=== PATIENT | female | born 1955 | race African-American/Black ===

== ENCOUNTER 2016-08-17 11:10 | Emergency (ER) | payer OTHER ==
[~2016-08-17] VITALS: Ht 157.5 cm; Wt 85.0 kg
[~2016-08-17 11:10] MED LIST: ACTOS15 MG PO; AMLODIPINE BESYL5 MG PO; APRESOLINE25 MG/TAB PO; ASPIRIN EC81 MG PO; CARDIZEM CD120 MG PO; CARDIZEM60 MG PO; ENALAPRIL2.5 MG PO; ENOXAPARIN80 MG/0.1 SC; FLEXERIL OR; GLIPIZIDE XL5 MG PO; GLIPIZIDE10 MG PO; LISINOPRIL10 MG PO; LOPRESSOR 550 MG/TAB PO; LOPRESSOR50 M1 PO; LORTAB5 OR; METFORMIN500 MG PO; NOVOLOG100 IU/1 M SC; ULTRAM50 M1 PO; WARFARIN SODIUM5 MG PO
[2016-08-17] MEDS ORDERED: VITAMIN D22000 UNIT PO (11:23)
[2016-08-17] MEDS ORDERED: SODIUM BICARBI650 MG PO (11:23)
[2016-08-17] MEDS ORDERED: METFORMIN500 MG PO (11:24)
[2016-08-17] MEDS ORDERED: CLONIDINE0.1 MG PO (11:24)
[2016-08-17 11:47] LABS: IMMATURE GRANULOCYTES 0.5 % (0.0-1.0); MEAN CELL VOLUME 79.7 fL CALC (80.0-100.0); MEAN CORPUSCULAR HGB 24.4 pG CALC (26.0-32.0); MEAN CORPUSCULAR HGB CONC 30.6 g/L CALC (32.0-36.0); NEUT# 13.05 thou/uL (2.00-7.15); RED BLOOD COUNT 2.46 mill/uL (4.20-5.60); RED CELL DISTRI WIDTH 17.2 % (11.5-15.5)
[2016-08-17 11:52] LABS: HEMATOCRIT 19.6 % (37.0-47.0)
[2016-08-17 12:02] LABS: INFLUENZA A NONE DETECTED (NONE DETECT); INFLUENZA B NONE DETECTED (NONE DETECT)
[2016-08-17 12:36] LABS: INTERNATIONAL NORMALIZED RATIO 3.1 RATIO (0.7-1.3); PROTHROMBIN TIME 36.6 SECONDS (9.0-12.5)
[2016-08-17 12:58] LABS: ALBUMIN 3.2 g/dL (3.2-5.0); BILIRUBIN, TOTAL 0.4 mg/dL (0.0-1.4); CALCIUM 9.1 mg/dL (8.4-10.2); CREATININE 2.7 mg/dL (0.5-1.0); TOTAL PROTEIN 8.4 g/dL (6.3-8.2)
[2016-08-17 13:03] LABS: POTASSIUM 5.7 mmol/l (3.5-5.1)
[2016-08-17 14:00] VITALS: BP 134/61
[2016-08-17 14:14] LABS: URINE BILIRUBIN - DIPSTICK NEGATIVE (NEGATIVE); URINE BLOOD DIPSTICK LARGE (NEGATIVE); URINE CLARITY CLOUDY; URINE COLOR YELLOW; URINE EPITHELIAL CELLS MODERATE EPI/hpf (0-FEW); URINE GLUCOSE - DIPSTICK NEGATIVE (NEGATIVE); URINE KETONE NEGATIVE (NEGATIVE); URINE LEUK ESTERASE SMALL (NEGATIVE); URINE NITRITE - DIPSTICK NEGATIVE (Negative); URINE PROTEIN - DIPSTICK 100 mg/dL (NEG-TRACE); URINE SPECIFIC GRAVITY 1.025; URINE UROBILINOGEN - DIPSTICK 0.2 E.U./dL (0.2)
[2016-08-17 14:15] LABS: URINE BACTERIA MANY hpf; URINE MUCUS MANY hpf (NONE-FEW)
[2016-08-17 14:16] VITALS: BP 124/58
[2016-08-17 14:35] VITALS: BP 121/58
[2016-08-17 14:46] VITALS: BP 118/57
[2016-08-17 15:03] VITALS: BP 116/56
[2016-08-17 15:12] VITALS: BP 116/56
== END 2016-08-17 15:14 | disposition short-term general hospital (02) | DRG 292 ==
LOC: ED 11:10
PROVIDERS: Emergency Medicine
PROC: 0T9B70Z Drainage of Bladder with Drainage Device, Via Natural or Artificial Opening (ICD-10-PCS; principal; 2016-08-17)
PROC: 30233N1 Transfusion of Nonautologous Red Blood Cells into Peripheral Vein, Percutaneous Approach (ICD-10-PCS; 2016-08-17)
PROC: 30233K1 Transfusion of Nonautologous Frozen Plasma into Peripheral Vein, Percutaneous Approach (ICD-10-PCS; 2016-08-17)
PROC: 30233K1 Transfusion of Nonautologous Frozen Plasma into Peripheral Vein, Percutaneous Approach (ICD-10-PCS; 2016-08-17)
DX: I13.0 Hypertensive heart and chronic kidney disease with heart failure and stage 1 through stage 4 chronic kidney disease, or unspecified chronic kidney disease (principal); K92.2 Gastrointestinal hemorrhage, unspecified; I69.954 Hemiplegia and hemiparesis following unspecified cerebrovascular disease affecting left non-dominant side; I50.9 Heart failure, unspecified; N18.9 Chronic kidney disease, unspecified; E11.9 Type 2 diabetes mellitus without complications; I48.91 Unspecified atrial fibrillation; E78.5 Hyperlipidemia, unspecified
CPT/HCPCS: P9016; S0164

== ENCOUNTER 2016-09-18 19:10 | Emergency (ER) | payer OTHER ==
[~2016-09-18] VITALS: Ht 157.5 cm; Wt 77.0 kg
[~2016-09-18 19:10] MED LIST changes: +CLONIDINE0.1 MG PO; +SODIUM BICARBI650 MG PO; +VITAMIN D22000 UNIT PO
[2016-09-18] MEDS ORDERED: LASIX 40 MG TAB40 MG PO (20:27)
[2016-09-18] MEDS ORDERED: CLINDAMYCIN300 M1 PO (20:27)
[2016-09-18] MEDS ORDERED: LEVEMIR100 UNIT/M SC (20:28)
[2016-09-18] MEDS ORDERED: NORVASC PO (20:29)
[2016-09-18] MEDS ORDERED: CLONIDINE HCL0.2 MG PO (20:30)
[2016-09-18] MEDS ORDERED: PANTOPRAZOLE SO40 M1 PO (20:31)
[2016-09-18] MEDS ORDERED: VITAMIN D50000 UNIT PO (20:32)
[2016-09-18 20:47] LABS: HEMOGLOBIN 8.9 g/dl (12.0-16.0); IMMATURE GRANULOCYTES 0.5 % (0.0-1.0); MEAN CELL VOLUME 83.1 fL CALC (80.0-100.0); MEAN CORPUSCULAR HGB 26.4 pG CALC (26.0-32.0); MEAN CORPUSCULAR HGB CONC 31.8 g/L CALC (32.0-36.0); NEUT# 11.32 thou/uL (2.00-7.15); RED BLOOD COUNT 3.37 mill/uL (4.20-5.60); RED CELL DISTRI WIDTH 15.7 % (11.5-15.5)
[2016-09-18 21:06] LABS: PROTHROMBIN TIME 10.3 SECONDS (9.0-12.5)
[2016-09-18 22:40] VITALS: BP 132/69
== END 2016-09-18 22:40 | disposition home or self-care (01) | DRG 607 ==
LOC: ED 19:10
PROVIDERS: Emergency Medicine
DX: R21 Rash and other nonspecific skin eruption (principal); I11.0 Hypertensive heart disease with heart failure; I50.9 Heart failure, unspecified; E11.621 Type 2 diabetes mellitus with foot ulcer; D64.9 Anemia, unspecified; D72.829 Elevated white blood cell count, unspecified; E78.5 Hyperlipidemia, unspecified; I48.91 Unspecified atrial fibrillation; L97.529 Non-pressure chronic ulcer of other part of left foot with unspecified severity; Z86.73 Personal history of transient ischemic attack (TIA), and cerebral infarction without residual deficits

== ENCOUNTER 2016-10-01 12:37 | Emergency (ER) | payer OTHER ==
[~2016-10-01] VITALS: Ht 157.5 cm; Wt 80.0 kg
[~2016-10-01 12:37] MED LIST changes: +CLINDAMYCIN300 M1 PO; +CLONIDINE HCL0.2 MG PO; +LASIX 40 MG TAB40 MG PO; +LEVEMIR100 UNIT/M SC; +NORVASC PO; +PANTOPRAZOLE SO40 M1 PO; +VITAMIN D50000 UNIT PO
[2016-10-01] MEDS ORDERED: CLONIDINE0.1 MG PO (12:56)
[2016-10-01] MEDS ORDERED: RISPERDAL0.5 MG PO (12:56)
[2016-10-01 13:24] LABS: HEMATOCRIT 25.4 % (37.0-47.0); HEMOGLOBIN 8.3 g/dl (12.0-16.0); IMMATURE GRANULOCYTES 0.3 % (0.0-1.0); MEAN CELL VOLUME 80.9 fL CALC (80.0-100.0); MEAN CORPUSCULAR HGB 26.4 pG CALC (26.0-32.0); MEAN CORPUSCULAR HGB CONC 32.7 g/L CALC (32.0-36.0); NEUT# 6.53 thou/uL (2.00-7.15); RED BLOOD COUNT 3.14 mill/uL (4.20-5.60); RED CELL DISTRI WIDTH 15.6 % (11.5-15.5)
[2016-10-01 13:34] LABS: INTERNATIONAL NORMALIZED RATIO 0.9 RATIO (0.7-1.3)
[2016-10-01 13:35] LABS: ALBUMIN 3.4 g/dL (3.2-5.0); ALKALINE PHOSPHATASE 136 u/l (38-126); ANION GAP 18 (6-22 (CALC)); BILIRUBIN, TOTAL 0.4 mg/dL (0.0-1.4); CALCIUM 8.8 mg/dL (8.4-10.2); CARBON DIOXIDE 20 mmol/l (22-30); CHLORIDE 95 mmol/l (95-108); CREATININE 3.8 mg/dL (0.5-1.0); GFR 12 ML/MIN (>=60 (CALC)); GFR FOR AFR.AMER. 15 ML/MIN (>=60 (CALC)); GLUCOSE 135 mg/dL (82-115); LIPASE 107 u/l (23-300); SGOT/AST 34 u/l (9-36); SGPT/ALT 25 u/l (11-66); SODIUM 127 mmol/l (137-146); TOTAL PROTEIN 8.3 g/dL (6.3-8.2)
[2016-10-01 13:39] LABS: BUN 90 mg/dL (8-23); BUN/CREATININE RATIO 24 (12-20 (CALC)); POTASSIUM 5.7 mmol/l (3.5-5.1)
[2016-10-01 14:58] LABS: MYOGLOBIN 245 ng/mL (0 - 62)
[2016-10-01 16:14] LABS: URINE BILIRUBIN - DIPSTICK NEGATIVE (NEGATIVE); URINE BLOOD DIPSTICK SMALL (NEGATIVE); URINE CLARITY CLOUDY; URINE COLOR YELLOW; URINE GLUCOSE - DIPSTICK NEGATIVE (NEGATIVE); URINE KETONE NEGATIVE (NEGATIVE); URINE LEUK ESTERASE NEGATIVE (Negative); URINE NITRITE - DIPSTICK NEGATIVE (Negative); URINE PH 5.5 (4.5-8.0); URINE PROTEIN - DIPSTICK 30 mg/dL (NEG-TRACE); URINE UROBILINOGEN - DIPSTICK 0.2 E.U./dL (0.2)
[2016-10-01 16:22] LABS: URINE AMORPH SEDIMENT MANY hpf (NONE-FEW); URINE SQUAMOUS EPITHELIAL CELL FEW EPI/hpf (0-FEW); URINE WBC 0-2 WBC/hpf (0-5)
[2016-10-01 18:18] VITALS: BP 140/65
== END 2016-10-01 18:18 | disposition short-term general hospital (02) | DRG 378 ==
LOC: ED 12:37 → ED-I 15:26 → ED 18:18
PROVIDERS: Emergency Medicine
DX: K92.2 Gastrointestinal hemorrhage, unspecified (principal); N17.9 Acute kidney failure, unspecified; E11.52 Type 2 diabetes mellitus with diabetic peripheral angiopathy with gangrene; I13.0 Hypertensive heart and chronic kidney disease with heart failure and stage 1 through stage 4 chronic kidney disease, or unspecified chronic kidney disease; I50.9 Heart failure, unspecified; D64.9 Anemia, unspecified; N18.9 Chronic kidney disease, unspecified; E87.5 Hyperkalemia; E78.5 Hyperlipidemia, unspecified; I48.91 Unspecified atrial fibrillation; Z86.73 Personal history of transient ischemic attack (TIA), and cerebral infarction without residual deficits

== ENCOUNTER 2017-01-31 12:18 | Emergency (ER) | payer OTHER ==
[~2017-01-31] VITALS: Ht 157.5 cm; Wt 100.0 kg
[~2017-01-31 12:18] MED LIST changes: +RISPERDAL0.5 MG PO
[2017-01-31 13:59] LABS: HEMATOCRIT 23.2 % (37.0-47.0); IMMATURE GRANULOCYTES 1.4 % (0.0-1.0); MEAN CELL VOLUME 88.2 fL CALC (80.0-100.0); MEAN CORPUSCULAR HGB 26.6 pG CALC (26.0-32.0); MEAN CORPUSCULAR HGB CONC 30.2 g/L CALC (32.0-36.0); PLATELET COUNT 599 thou/uL (130-400); RED BLOOD COUNT 2.63 mill/uL (4.20-5.60); RED CELL DISTRI WIDTH 18.6 % (11.5-15.5)
[2017-01-31 14:02] LABS: MANUAL DIFFERENTIAL YES
[2017-01-31 14:16] LABS: ALBUMIN 2.9 g/dL (3.2-5.0); BILIRUBIN, TOTAL 0.5 mg/dL (0.0-1.4); CALCIUM 8.4 mg/dL (8.4-10.2); CREATININE 3.2 mg/dL (0.5-1.0); POTASSIUM 3.7 mmol/l (3.5-5.1); TOTAL PROTEIN 7.4 g/dL (6.3-8.2)
[2017-01-31 15:40] VITALS: BP 121/58
== END 2017-01-31 15:40 | disposition short-term general hospital (02) | DRG 299 ==
LOC: ED 12:18
PROVIDERS: Emergency Medicine
DX: E11.52 Type 2 diabetes mellitus with diabetic peripheral angiopathy with gangrene (principal); N18.6 End stage renal disease; I13.2 Hypertensive heart and chronic kidney disease with heart failure and with stage 5 chronic kidney disease, or end stage renal disease; E11.22 Type 2 diabetes mellitus with diabetic chronic kidney disease; L97.429 Non-pressure chronic ulcer of left heel and midfoot with unspecified severity; L97.419 Non-pressure chronic ulcer of right heel and midfoot with unspecified severity; E11.621 Type 2 diabetes mellitus with foot ulcer; E78.5 Hyperlipidemia, unspecified; D63.1 Anemia in chronic kidney disease; I50.9 Heart failure, unspecified; Z99.2 Dependence on renal dialysis; Z86.73 Personal history of transient ischemic attack (TIA), and cerebral infarction without residual deficits

== ENCOUNTER 2017-04-12 17:03 | Emergency (ER) | payer OTHER ==
[~2017-04-12] VITALS: Ht 157.5 cm; Wt 59.0 kg
[2017-04-12 18:39] LABS: HEMATOCRIT 45.4 % (37.0-47.0); HEMOGLOBIN 13.4 g/dl (12.0-16.0); IMMATURE GRANULOCYTES 0.4 % (0.0-1.0); MEAN CELL VOLUME 91.5 fL CALC (80.0-100.0); MEAN CORPUSCULAR HGB CONC 29.5 g/L CALC (32.0-36.0); NEUT# 4.25 thou/uL (2.00-7.15); RED BLOOD COUNT 4.96 mill/uL (4.20-5.60); RED CELL DISTRI WIDTH 15.1 % (11.5-15.5)
[2017-04-12] MEDS ORDERED: ASPIRIN81 MG PO (18:49)
[2017-04-12] MEDS ORDERED: AMLODIPINE5 MG PO (18:50)
[2017-04-12] MEDS ORDERED: DILTIAZEM60 MG PO (18:52)
[2017-04-12] MEDS ORDERED: LEVEMIR FL100 UNIT/M SC (18:53)
[2017-04-12] MEDS ORDERED: COUMADIN5 MG PO (18:54)
[2017-04-12 19:04] LABS: ALBUMIN 3.3 g/dL (3.2-5.0); ALKALINE PHOSPHATASE 212 u/l (38-126); ANION GAP 16 (6-22 (CALC)); BILIRUBIN, TOTAL 0.3 mg/dL (0.0-1.4); BUN 35 mg/dL (8-23); BUN/CREATININE RATIO 12 (12-20 (CALC)); CALCIUM 8.9 mg/dL (8.4-10.2); CARBON DIOXIDE 18 mmol/l (22-30); CHLORIDE 107 mmol/l (95-108); GFR 16 ML/MIN (>=60 (CALC)); GFR FOR AFR.AMER. 19 ML/MIN (>=60 (CALC)); GLUCOSE 136 mg/dL (82-115); POTASSIUM 5.1 mmol/l (3.5-5.1); SGOT/AST 37 u/l (9-36); SGPT/ALT 30 u/l (11-66); SODIUM 135 mmol/l (137-146); TOTAL PROTEIN 7.6 g/dL (6.3-8.2)
[2017-04-12 19:13] LABS: MYOGLOBIN 149 ng/mL (0 - 62)
[2017-04-12 23:38] VITALS: BP 172/80
== END 2017-04-12 22:55 | DRG 313 ==
LOC: ED 17:03
PROVIDERS: Emergency Medicine
DX: R07.89 Other chest pain (principal); I50.9 Heart failure, unspecified; I10 Essential (primary) hypertension; I48.91 Unspecified atrial fibrillation; Z99.2 Dependence on renal dialysis; E11.9 Type 2 diabetes mellitus without complications

== ENCOUNTER 2017-04-14 18:18 | Emergency (ER) | payer OTHER ==
[~2017-04-14] VITALS: Ht 157.5 cm; Wt 65.0 kg
[~2017-04-14 18:18] MED LIST changes: +AMLODIPINE5 MG PO; +ASPIRIN81 MG PO; +COUMADIN5 MG PO; +DILTIAZEM60 MG PO; +LEVEMIR FL100 UNIT/M SC
[2017-04-14] MEDS ORDERED: WARFARIN4 MG PO (19:22)
[2017-04-14] MEDS ORDERED: WARFARIN5 MG PO (19:22)
[2017-04-14 19:23] LABS: HEMOGLOBIN 11.3 g/dl (12.0-16.0); IMMATURE GRANULOCYTES 0.5 % (0.0-1.0); MEAN CELL VOLUME 88.5 fL CALC (80.0-100.0); MEAN CORPUSCULAR HGB CONC 30.5 g/L CALC (32.0-36.0); NEUT# 1.98 thou/uL (2.00-7.15); RED BLOOD COUNT 4.18 mill/uL (4.20-5.60); RED CELL DISTRI WIDTH 15.2 % (11.5-15.5)
[2017-04-14] MEDS ORDERED: ASCORBIC ACD500 MG PO (19:28)
[2017-04-14] MEDS ORDERED: ATIVAN1 MG PO (19:28)
[2017-04-14] MEDS ORDERED: HUMALOG100 MG/ML (19:30)
[2017-04-14 19:44] LABS: ALBUMIN 2.9 g/dL (3.2-5.0); BILIRUBIN, TOTAL 0.2 mg/dL (0.0-1.4); CALCIUM 8.6 mg/dL (8.4-10.2); CREATININE 2.7 mg/dL (0.5-1.0); POTASSIUM 4.5 mmol/l (3.5-5.1); TOTAL PROTEIN 6.6 g/dL (6.3-8.2)
[2017-04-14 20:45] VITALS: BP 124/67
== END 2017-04-14 21:19 | DRG 639 ==
LOC: ED 18:18
PROVIDERS: Emergency Medicine
DX: E11.649 Type 2 diabetes mellitus with hypoglycemia without coma (principal); I48.91 Unspecified atrial fibrillation; Z79.4 Long term (current) use of insulin; I10 Essential (primary) hypertension; Z79.01 Long term (current) use of anticoagulants

== ENCOUNTER 2017-07-20 11:47 | Emergency (ER) | payer OTHER ==
[~2017-07-20] VITALS: Ht 157.5 cm; Wt 60.0 kg
[~2017-07-20 11:47] MED LIST changes: +ASCORBIC ACD500 MG PO; +ATIVAN1 MG PO; +HUMALOG100 MG/ML; +WARFARIN4 MG PO; +WARFARIN5 MG PO
[2017-07-20 13:05] LABS: IMMATURE GRANULOCYTES 1.3 % (0.0-1.0); MEAN CELL VOLUME 92.6 fL CALC (80.0-100.0); MEAN CORPUSCULAR HGB 27.8 pG CALC (26.0-32.0); RED CELL DISTRI WIDTH 13.7 % (11.5-15.5)
[2017-07-20 13:06] LABS: HEMATOCRIT 46.3 % (37.0-47.0); HEMOGLOBIN 13.9 g/dl (12.0-16.0)
[2017-07-20 14:41] LABS: ALBUMIN 3.2 g/dL (3.2-5.0); BILIRUBIN, TOTAL 0.4 mg/dL (0.0-1.4); MAGNESIUM 1.9 mg/dL (1.6-2.3); POTASSIUM 4.7 mmol/l (3.5-5.1); TOTAL PROTEIN 6.9 g/dL (6.3-8.2)
[2017-07-20 14:42] LABS: CREATININE 1.5 mg/dL (0.5-1.0)
[2017-07-20 15:21] VITALS: BP 173/75
== END 2017-07-20 16:01 | disposition home or self-care (01) | DRG 391 ==
LOC: ED 11:47
PROVIDERS: Family Medicine
DX: K52.9 Noninfective gastroenteritis and colitis, unspecified (principal); N18.6 End stage renal disease; E11.22 Type 2 diabetes mellitus with diabetic chronic kidney disease; E11.51 Type 2 diabetes mellitus with diabetic peripheral angiopathy without gangrene; F03.90 Unspecified dementia, unspecified severity, without behavioral disturbance, psychotic disturbance, mood disturbance, and anxiety; F41.9 Anxiety disorder, unspecified; F32.9 Major depressive disorder, single episode, unspecified; Z99.2 Dependence on renal dialysis; R11.10 Vomiting, unspecified; R10.9 Unspecified abdominal pain

== ENCOUNTER 2017-11-27 14:08 | Emergency (ER) | payer OTHER ==
[~2017-11-27] VITALS: Ht 157.5 cm; Wt 100.0 kg
[2017-11-27] MEDS ORDERED: CLONAZEPAM0.5 MG PO ×2 (14:36→14:39)
[2017-11-27] MEDS ORDERED: LEVEMIR FL100 UNIT/M SC (14:40)
[2017-11-27] MEDS ORDERED: OMEPRAZOLE10 MG PO (14:41)
[2017-11-27] MEDS ORDERED: ZINC SULFATE220 M1 PO (14:57)
[2017-11-27 16:12] LABS: IMMATURE GRANULOCYTES 0.5 % (0.0-1.0); MEAN CELL VOLUME 96.1 fL CALC (80.0-100.0); MEAN CORPUSCULAR HGB CONC 30.2 g/L CALC (32.0-36.0); NEUT# 5.14 thou/uL (2.00-7.15); RED BLOOD COUNT 3.55 mill/uL (4.20-5.60); RED CELL DISTRI WIDTH 15.9 % (11.5-15.5)
[2017-11-27] MEDS ORDERED: COLACE100 MG PO (16:30)
[2017-11-27 16:31] LABS: HEMATOCRIT 34.1 % (37.0-47.0); HEMOGLOBIN 10.3 g/dl (12.0-16.0)
[2017-11-27] MEDS ORDERED: PERCOCET 5/321 COMBO PO (16:33)
[2017-11-27 16:38] LABS: ALBUMIN 3.4 g/dL (3.2-5.0); BILIRUBIN, TOTAL 0.4 mg/dL (0.0-1.4); CREATININE 2.2 mg/dL (0.5-1.0); POTASSIUM 4.4 mmol/l (3.5-5.1); TOTAL PROTEIN 7.3 g/dL (6.3-8.2)
[2017-11-27 17:18] VITALS: BP 137/63
== END 2017-11-27 17:37 ==
LOC: ED 14:08
PROVIDERS: Emergency Medicine
DX: R42 Dizziness and giddiness (principal); R53.1 Weakness; E11.22 Type 2 diabetes mellitus with diabetic chronic kidney disease; N18.6 End stage renal disease; Z99.2 Dependence on renal dialysis; E11.51 Type 2 diabetes mellitus with diabetic peripheral angiopathy without gangrene; F41.9 Anxiety disorder, unspecified; F03.90 Unspecified dementia, unspecified severity, without behavioral disturbance, psychotic disturbance, mood disturbance, and anxiety; F32.9 Major depressive disorder, single episode, unspecified; Z99.3 Dependence on wheelchair; Z89.612 Acquired absence of left leg above knee

== ENCOUNTER 2018-04-14 07:02 | Day surgery (SDC) | payer OTHER ==
[~2018-04-14 07:02] MED LIST changes: +CLONAZEPAM0.5 MG PO; +COLACE100 MG PO; +OMEPRAZOLE10 MG PO; +PERCOCET 5/321 COMBO PO; +ZINC SULFATE220 M1 PO; +ZOFRAN ODT4 MG PO
[2018-04-14 08:04] LABS: IMMATURE GRANULOCYTES 0.3 % (0.0-5.0); MEAN CELL VOLUME 90.4 fL CALC (80.0-100.0); MEAN CORPUSCULAR HGB 27.5 pG CALC (26.0-32.0); MEAN CORPUSCULAR HGB CONC 30.5 g/L CALC (32.0-36.0); NEUT# 6.72 thou/uL (2.00-7.15); RED BLOOD COUNT 4.25 mill/uL (4.20-5.60); RED CELL DISTRI WIDTH 16.3 % (11.5-15.5)
[2018-04-14 08:15] LABS: HEMATOCRIT 38.4 % (37.0-47.0); HEMOGLOBIN 11.7 g/dl (12.0-16.0)
[2018-04-14 08:21] LABS: ACT PARTIAL THROMBO TIME 29.2 SECONDS (20.0-32.5); INTERNATIONAL NORMALIZED RATIO 0.9 RATIO (0.7-1.3); PROTHROMBIN TIME 9.9 SECONDS (9.0-12.5)
[2018-04-14 08:27] LABS: CREATININE 4.1 mg/dL (0.5-1.0); POTASSIUM 5.8 mmol/l (3.5-5.1)
[2018-04-14 10:59] VITALS: BP 165/73
== END 2018-04-14 10:35 ==
LOC: ORM 07:02
PROVIDERS: ATTEND Radiology Diagnostic Radiology
DX: T82.898A Other specified complication of vascular prosthetic devices, implants and grafts, initial encounter (principal); I12.0 Hypertensive chronic kidney disease with stage 5 chronic kidney disease or end stage renal disease; E11.22 Type 2 diabetes mellitus with diabetic chronic kidney disease; N18.6 End stage renal disease; Z99.2 Dependence on renal dialysis; I69.954 Hemiplegia and hemiparesis following unspecified cerebrovascular disease affecting left non-dominant side; I69.928 Other speech and language deficits following unspecified cerebrovascular disease; F03.90 Unspecified dementia, unspecified severity, without behavioral disturbance, psychotic disturbance, mood disturbance, and anxiety; I48.91 Unspecified atrial fibrillation; Y83.8 Other surgical procedures as the cause of abnormal reaction of the patient, or of later complication, without mention of misadventure at the time of the procedure; Z79.01 Long term (current) use of anticoagulants; Z86.718 Personal history of other venous thrombosis and embolism
CPT/HCPCS: C1769

== ENCOUNTER 2018-04-14 18:17 | Emergency (ER) | payer OTHER ==
[~2018-04-14] VITALS: Ht 154.9 cm; Wt 160.0 kg
[2018-04-14 23:15] VITALS: BP 162/72
== END 2018-04-14 23:37 ==
LOC: ED 18:17
DX: Z45.2 Encounter for adjustment and management of vascular access device (principal)

== ENCOUNTER 2018-11-17 20:08 | Emergency (ER) | payer OTHER ==
[~2018-11-17] VITALS: Ht 154.9 cm; Wt 81.8 kg
[2018-11-17] MEDS ORDERED: MIRALAX3350 NF PO (20:45)
[2018-11-17] MEDS ORDERED: PEPCID20 MG PO (20:46)
[2018-11-17] MEDS ORDERED: RENAL VITE PO (20:47)
[2018-11-17] MEDS ORDERED: PHOSLO667 M1 PO (20:53)
[2018-11-18 00:30] VITALS: BP 116/88
== END 2018-11-18 00:30 ==
LOC: ED 20:08
DX: M79.604 Pain in right leg (principal); S82.201D Unspecified fracture of shaft of right tibia, subsequent encounter for closed fracture with routine healing; F03.90 Unspecified dementia, unspecified severity, without behavioral disturbance, psychotic disturbance, mood disturbance, and anxiety; E11.51 Type 2 diabetes mellitus with diabetic peripheral angiopathy without gangrene; E11.22 Type 2 diabetes mellitus with diabetic chronic kidney disease; N18.6 End stage renal disease; X58.XXXD Exposure to other specified factors, subsequent encounter; Z89.612 Acquired absence of left leg above knee; Z79.4 Long term (current) use of insulin; M79.89 Other specified soft tissue disorders

== ENCOUNTER 2019-04-14 14:10 | Emergency (ER) | payer OTHER ==
[~2019-04-14] VITALS: Ht 154.9 cm; Wt 66.0 kg
[~2019-04-14 14:10] MED LIST changes: +MIRALAX3350 NF PO; +PEPCID20 MG PO; +PHOSLO667 M1 PO; +RENAL VITE PO
[2019-04-14 15:54] LABS: IMMATURE GRANULOCYTES 0.6 % (0.0-5.0); MEAN CELL VOLUME 94.3 fL CALC (80.0-100.0); MEAN CORPUSCULAR HGB 28.5 pG CALC (26.0-32.0); MEAN CORPUSCULAR HGB CONC 30.2 g/L CALC (32.0-36.0); NEUT# 16.72 thou/uL (2.00-7.15); RED BLOOD COUNT 4.42 mill/uL (4.20-5.60); RED CELL DISTRI WIDTH 14.8 % (11.5-15.5)
[2019-04-14 15:56] LABS: HEMATOCRIT 41.7 % (37.0-47.0); HEMOGLOBIN 12.6 g/dl (12.0-16.0)
[2019-04-14 16:13] LABS: TOTAL PROTEIN 8.4 g/dL (6.3-8.2)
[2019-04-14 16:21] LABS: BILIRUBIN, TOTAL 1.2 mg/dL (0.0-1.4); CREATININE 6.3 mg/dL (0.5-1.0); POTASSIUM 4.5 mmol/l (3.5-5.1)
[2019-04-14 16:56] LABS: URINE BILIRUBIN - DIPSTICK NEGATIVE (NEGATIVE); URINE BLOOD DIPSTICK MODERATE (NEGATIVE); URINE COLOR YELLOW; URINE GLUCOSE - DIPSTICK NEGATIVE (NEGATIVE); URINE KETONE TRACE mg/dL (NEGATIVE); URINE LEUK ESTERASE MODERATE (NEGATIVE); URINE NITRITE - DIPSTICK NEGATIVE (Negative); URINE PH 6.5 (4.5-8.0); URINE PROTEIN - DIPSTICK >=300 mg/dL (NEG-TRACE); URINE UROBILINOGEN - DIPSTICK 0.2 E.U./dL (0.2)
[2019-04-14 17:05] LABS: URINE BACTERIA MODERATE hpf; URINE RBC TNTC RBC/hpf (0-5); URINE SQUAMOUS EPITHELIAL CELL FEW EPI/hpf (0-FEW); URINE WBC TNTC WBC/hpf (0-5)
[2019-04-14 20:13] VITALS: BP 161/67
== END 2019-04-14 20:35 ==
LOC: ED 14:10
DX: J10.00 Influenza due to other identified influenza virus with unspecified type of pneumonia (principal); R11.2 Nausea with vomiting, unspecified; N18.6 End stage renal disease; J96.11 Chronic respiratory failure with hypoxia
CPT/HCPCS: G9019; J0131; J2060

== ENCOUNTER 2019-04-29 06:15 | Emergency (ER) | payer OTHER ==
[~2019-04-29] VITALS: Ht 154.9 cm; Wt 82.0 kg
[2019-04-29 07:16] LABS: IMMATURE GRANULOCYTES 0.6 % (0.0-5.0); MEAN CELL VOLUME 91.1 fL CALC (80.0-100.0); MEAN CORPUSCULAR HGB 27.6 pG CALC (26.0-32.0); MEAN CORPUSCULAR HGB CONC 30.3 g/L CALC (32.0-36.0); NEUT# 8.31 thou/uL (2.00-7.15); RED BLOOD COUNT 3.26 mill/uL (4.20-5.60); RED CELL DISTRI WIDTH 15.8 % (11.5-15.5)
[2019-04-29 07:17] LABS: HEMATOCRIT 29.7 % (37.0-47.0)
[2019-04-29 07:24] LABS: POTASSIUM 3.8 mmol/l (3.5-5.1); TOTAL PROTEIN 9.5 g/dL (6.3-8.2)
[2019-04-29 07:26] LABS: BILIRUBIN, TOTAL 0.4 mg/dL (0.0-1.4); CREATININE 6.2 mg/dL (0.5-1.0)
[2019-04-29 08:04] LABS: URINE BLOOD DIPSTICK SMALL (NEGATIVE); URINE COLOR YELLOW; URINE GLUCOSE - DIPSTICK NEGATIVE (NEGATIVE); URINE KETONE TRACE mg/dL (NEGATIVE); URINE LEUK ESTERASE SMALL (Negative); URINE NITRITE - DIPSTICK NEGATIVE (Negative); URINE PROTEIN - DIPSTICK >=300 mg/dL (NEG-TRACE); URINE UROBILINOGEN - DIPSTICK 0.2 E.U./dL (0.2)
[2019-04-29 08:06] LABS: URINE BACTERIA FEW hpf; URINE BILIRUBIN - DIPSTICK SMALL (NEGATIVE); URINE CLARITY HAZY; URINE EPITHELIAL CELLS MODERATE EPI/hpf (0-FEW); URINE MUCUS MODERATE hpf (NONE-FEW); URINE RBC 0-2 RBC/hpf (0-5)
[2019-04-29] MEDS ORDERED: CEPHALEXIN500 MG PO (08:11)
[2019-04-29 09:15] VITALS: BP 130/59
== END 2019-04-29 09:47 ==
LOC: ED 06:15
PROVIDERS: Emergency Medicine
DX: N39.0 Urinary tract infection, site not specified (principal); D63.1 Anemia in chronic kidney disease; E11.22 Type 2 diabetes mellitus with diabetic chronic kidney disease; N18.6 End stage renal disease; F03.90 Unspecified dementia, unspecified severity, without behavioral disturbance, psychotic disturbance, mood disturbance, and anxiety; Z99.2 Dependence on renal dialysis; Z89.612 Acquired absence of left leg above knee; Z79.4 Long term (current) use of insulin

== ENCOUNTER 2019-07-05 | Emergency (ER) | payer OTHER ==
[~2019-07-05] MED LIST changes: +CEPHALEXIN500 MG PO
[2019-07-05 01:07] LABS: IMMATURE GRANULOCYTES 0.1 % (0.0-5.0); MEAN CORPUSCULAR HGB 28.7 pG CALC (26.0-32.0); MEAN CORPUSCULAR HGB CONC 30.3 g/L CALC (32.0-36.0); NEUT# 3.5 thou/uL (2.00-7.15); RED BLOOD COUNT 4.21 mill/uL (4.20-5.60); RED CELL DISTRI WIDTH 14.6 % (11.5-15.5)
[2019-07-05 01:11] LABS: HEMOGLOBIN 12.1 g/dl (12.0-16.0)
[2019-07-05 01:12] LABS: URINE BILIRUBIN - DIPSTICK NEGATIVE (NEGATIVE); URINE BLOOD DIPSTICK SMALL (NEGATIVE); URINE COLOR YELLOW; URINE GLUCOSE - DIPSTICK NEGATIVE (NEGATIVE); URINE KETONE NEGATIVE (NEGATIVE); URINE LEUK ESTERASE NEGATIVE (NEGATIVE); URINE NITRITE - DIPSTICK NEGATIVE (Negative); URINE PROTEIN - DIPSTICK >=300 mg/dL (NEG-TRACE); URINE UROBILINOGEN - DIPSTICK 0.2 E.U./dL (0.2)
[2019-07-05 01:13] LABS: URINE EPITHELIAL CELLS FEW EPI/hpf (0-FEW); URINE MUCUS MODERATE hpf (NONE-FEW)
[2019-07-05 01:23] LABS: ALBUMIN 3.3 g/dL (3.2-5.0); BILIRUBIN, TOTAL 0.4 mg/dL (0.0-1.4)
[2019-07-05 01:26] LABS: CREATININE 3.7 mg/dL (0.5-1.0); POTASSIUM 5.7 mmol/l (3.5-5.1)
[2019-07-05] MEDS ORDERED: TRAMADOL HCL50 MG PO (01:30)
[2019-07-05] MEDS ORDERED: ONDANSETRON4 MG PO (03:03)
== END 2019-07-05 03:35 ==
DX: K80.20 Calculus of gallbladder without cholecystitis without obstruction (principal); E11.51 Type 2 diabetes mellitus with diabetic peripheral angiopathy without gangrene; E11.22 Type 2 diabetes mellitus with diabetic chronic kidney disease; N18.6 End stage renal disease; Z99.2 Dependence on renal dialysis; I69.919 Unspecified symptoms and signs involving cognitive functions following unspecified cerebrovascular disease; F01.50 Vascular dementia, unspecified severity, without behavioral disturbance, psychotic disturbance, mood disturbance, and anxiety; Z79.4 Long term (current) use of insulin

== ENCOUNTER 2019-11-06 04:29 | Emergency (ER) | payer OTHER ==
[~2019-11-06] VITALS: Ht 154.9 cm; Wt 66.3 kg
[~2019-11-06 04:29] MED LIST changes: +ONDANSETRON4 MG PO; +TRAMADOL HCL50 MG PO
[2019-11-06] MEDS ORDERED: DIFLUCAN150 MG PO (04:52)
[2019-11-06] MEDS ORDERED: METOPROL TAR25 MG PO (04:58)
[2019-11-06] MEDS ORDERED: CLONIDINE0.1 MG PO (05:01)
[2019-11-06 05:13] LABS: HEMATOCRIT 34.3 % (37.0-47.0); HEMOGLOBIN 10.3 g/dl (12.0-16.0); IMMATURE GRANULOCYTES 0.2 % (0.0-5.0); MEAN CELL VOLUME 92.2 fL CALC (80.0-100.0); MEAN CORPUSCULAR HGB 27.7 pG CALC (26.0-32.0); NEUT# 3.5 thou/uL (2.00-7.15); RED BLOOD COUNT 3.72 mill/uL (4.20-5.60); RED CELL DISTRI WIDTH 15.6 % (11.5-15.5)
[2019-11-06 05:25] LABS: ALBUMIN 2.9 g/dL (3.2-5.0); BILIRUBIN, TOTAL 0.4 mg/dL (0.0-1.4); CREATININE 4.4 mg/dL (0.5-1.0); TOTAL PROTEIN 6.5 g/dL (6.3-8.2)
[2019-11-06 05:31] LABS: POTASSIUM 4.5 mmol/l (3.5-5.1)
[2019-11-06] MEDS ORDERED: AMLODIPINE BESY10 MG PO (06:05)
[2019-11-06] MEDS ORDERED: LOPRESSOR50 M2 PO (06:06)
[2019-11-06 07:30] VITALS: BP 140/76
== END 2019-11-06 07:40 ==
LOC: ED 04:29
PROVIDERS: Family Medicine
DX: I12.0 Hypertensive chronic kidney disease with stage 5 chronic kidney disease or end stage renal disease (principal); E11.22 Type 2 diabetes mellitus with diabetic chronic kidney disease; N18.6 End stage renal disease; E11.51 Type 2 diabetes mellitus with diabetic peripheral angiopathy without gangrene; F03.90 Unspecified dementia, unspecified severity, without behavioral disturbance, psychotic disturbance, mood disturbance, and anxiety; Z99.2 Dependence on renal dialysis; Z79.4 Long term (current) use of insulin

== ENCOUNTER 2019-11-09 23:43 | Observation (INO) | payer OTHER ==
[~2019-11-09] VITALS: Ht 154.9 cm; Wt 65.5 kg
[~2019-11-09 23:43] MED LIST changes: +AMLODIPINE BESY10 MG PO; +DIFLUCAN150 MG PO; +LOPRESSOR50 M2 PO; +METOPROL TAR25 MG PO
--- NOTE | 2019-11-09 23:45 | NUR ---
PATIENT TO ROOM 14 VIA EMS STRETCHER. PATIENT ARRIVES IN A GOWN. TRIAGE COMPLETED FROM HISTORY. PATIENT DENIES CHEST PAIN. STATES ONLY HER RIGHT ARM HURTS. ARM APPEARS RED, NO SWELLING OR WARMTH. GOOD PULSES.
--- NOTE | 2019-11-10 00:05 | NUR ---
PATIENT YELLING REPEATEDLY ONLY STATES RIGHT ARM PAIN WHEN QUESTIONED ABOUT WHY SHE IS YELLING
[2019-11-10 01:09] LABS: BILIRUBIN, TOTAL 0.5 mg/dL (0.0-1.4); CREATININE 3.5 mg/dL (0.5-1.0); POTASSIUM 4.4 mmol/l (3.5-5.1); TOTAL PROTEIN 7.6 g/dL (6.3-8.2)
[2019-11-10 01:11] LABS: HEMOGLOBIN 10.1 g/dl (12.0-16.0); IMMATURE GRANULOCYTES 0.3 % (0.0-5.0); MEAN CELL VOLUME 92.6 fL CALC (80.0-100.0); MEAN CORPUSCULAR HGB 27.5 pG CALC (26.0-32.0); MEAN CORPUSCULAR HGB CONC 29.7 g/dL CAL (32.0-36.0); NEUT# 4.78 thou/uL (2.00-7.15); RED BLOOD COUNT 3.67 mill/uL (4.20-5.60); RED CELL DISTRI WIDTH 15.3 % (11.5-15.5)
[2019-11-10 01:12] LABS: ALBUMIN 3.5 g/dL (3.2-5.0)
--- NOTE | 2019-11-10 01:23 | NUR ---
PATIENT MEDICATED FOR C/O PAIN PER PHYSICIAN ORDER AT [id number] REQUEST, NO S/S OF DISTRESS NOTED, RESPIRATIONS EVEN AND UNLABORED, PATIENT REPEATED SHOUTS REDUCED AFTER PATIENT MEDICATED FOR PAIN.
--- NOTE | 2019-11-10 01:34 | NUR ---
ULTRASOUND AT BEDSIDE
[2019-11-10 01:35] LABS: URINE BILIRUBIN - DIPSTICK NEGATIVE (NEGATIVE); URINE BLOOD DIPSTICK LARGE (NEGATIVE); URINE COLOR YELLOW; URINE GLUCOSE - DIPSTICK NEGATIVE (NEGATIVE); URINE PH 7.5 (4.5-8.0); URINE PROTEIN - DIPSTICK >=300 mg/dL (NEG-TRACE); URINE SPECIFIC GRAVITY 1.025; URINE UROBILINOGEN - DIPSTICK 0.2 E.U./dL (0.2)
[2019-11-10 01:37] LABS: URINE KETONE Negative (NEGATIVE); URINE LEUK ESTERASE LARGE (NEGATIVE); URINE NITRITE - DIPSTICK POSITIVE (Negative)
--- NOTE | 2019-11-10 01:42 | NUR ---
KINDRA FROM [facility] CALLED FOR UPDATE ON PATIENT.
[2019-11-10 01:46] LABS: URINE BACTERIA MANY hpf; URINE EPITHELIAL CELLS MODERATE EPI/hpf (0-FEW); URINE RBC >100 RBC/hpf (0-5); URINE WBC >100 WBC/hpf (0-5)
--- NOTE | 2019-11-10 01:53 | NUR ---
BEDSIDE ULTRASOUND COMPLETE
--- NOTE | 2019-11-10 02:31 | NUR ---
PATIENT APPEARS TO BE SLEEPING, EYES CLOSED, RESPIRATIONS EVEN AND UNALBORED, NO C/O PAIN OR DISCOMFORT, NO S/S OF DISTRESS NOTED, AWAITING DIAGNOSTIC RESULTS.
--- NOTE | 2019-11-10 03:38 | NUR ---
AWAITING INPATIENT BED, APPEARS TO BE SLEEPING, NO C/O PAIN OR DISCOMFORT, NO S/S OF DISTRESS, RESPIRATIONS EVEN AND UNALBORED.
--- NOTE | 2019-11-10 04:24 | NUR ---
HAND OFF REPORT GIVEN TO ALEX WING. ROOM NOT READY, NURSE TO CALL BACK WHEN THE ROOM IS READY.
--- NOTE | 2019-11-10 04:46 | NUR ---
PATIENT TAKEN TO INPATIENT TREAT ROOM 271, AWAKE AND ALERT, NO S/S OF DISTRESS
--- NOTE | 2019-11-10 05:13 | NUR ---
PT ARRIVED TO MS2 VIA STRETCHER, ASSISTED X4 TO BED. PT YELLING OUT. ORIENTED PT TO ROOM AND CALL LIGHT, DISCUSSED POC, PT NEEDS REINFORCMENT, PT CONTINUES TO YELL OUT, WHEN ASKED WHY SHE IS YELLING OUT PT STATES SHE HAS NOTHING ELSE TO DO. PT ALSO C/O PAIN TO HER "PUSSY" PT MEDICATED PER MAR. NOTED DRY SCALING TO UNDER ARMS AND REDNESS AND IRRITATION UNDER BREASTS, PT HAS A STAGE II TO BUTTOCK, DUO DERM APPLIED SEE CHART FOR PHOTOS. PT INCONTINENT OF URINE, BRIEF APPLIED. DIALYSIS PORT TO R SUBCLAVIAN, IV SITE FLUSED WELL AND INITIATED IV ANTIBIOTICS, BED ALARM FOR SAFETY, ADMISSION ASSESSMENT COMPLETED, CALL LIGHT IN REACH,CONTINUE TO MONITOR.
[2019-11-10 05:14] VITALS: BP 203/69
[2019-11-10 06:20] VITALS: BP 189/88
--- NOTE | 2019-11-10 06:38 | NUR ---
PT BLOOD SUGAR 59, PT STILL YELLING OUT, ORANGE JUICE AND SUGAR GIVEN. CALL LIGHT IN REACH, BED ALARM FOR SAFETY, CONTINUE TO MONITOR.
[2019-11-10 08:15] VITALS: BP 183/66
--- NOTE | 2019-11-10 09:00 | NUR ---
PT HEARD YELLING OUT, DOES NOT KNOW WHY SHE IS DOING SO. NO EVIDENCE OF DISTRESS. RIGHT HAND RED AND SLIGHTLY EDEMATOUS PER CELLULITIS. LUNGS CLEAR, RA. COCCYX HAS STAGE I, NO OPEN AREAS.
[2019-11-10 10:14] VITALS: BP 162/72
[2019-11-10] MEDS ORDERED: KEFLEX500 MG PO (10:41)
--- NOTE | 2019-11-10 12:58 | NUR ---
PT DISCHARGED BACK TO [place]. FAMILY HAS BEEN AT BEDSIDE MOST OF THE MORNING, HELPFUL IN HER CARE. PT PROVIDED ULTRAM FOR ABDOMINAL PAIN RELIEF, SEEN RESTING QUIETLY IN BED THEREAFTER. TO TRANSFER BACK TO [facility] WHEN THEIR STAFF COMES, PROBABLY IN AN HOUR.
--- NOTE | 2019-11-10 13:20 | NUR ---
PT LEAVES [facility] AT THIS TIME VIA WHEELCHAIR FOR [facility]. PT IS IN STABLE CONDITION. FAMILY ACCOMPANY. FAMILY VERBALIZES UNDERSTANDING OF DISCHARGE INSTRUCTIONS.
== END 2019-11-10 13:21 ==
LOC: ED 23:43 → ED-I 11-10 03:14 → ED 11-10 03:40 → MS2 11-10 03:41 → ICU 11-10 03:51 → MS2 11-10 03:55
PROVIDERS: Emergency Medicine; ADMIT Internal Medicine; ATTEND Internal Medicine
DX: L03.113 Cellulitis of right upper limb (principal); R07.9 Chest pain, unspecified; N39.0 Urinary tract infection, site not specified; I12.0 Hypertensive chronic kidney disease with stage 5 chronic kidney disease or end stage renal disease; E11.22 Type 2 diabetes mellitus with diabetic chronic kidney disease; N18.6 End stage renal disease; E11.51 Type 2 diabetes mellitus with diabetic peripheral angiopathy without gangrene; I48.0 Paroxysmal atrial fibrillation; F03.90 Unspecified dementia, unspecified severity, without behavioral disturbance, psychotic disturbance, mood disturbance, and anxiety; M24.541 Contracture, right hand; F17.200 Nicotine dependence, unspecified, uncomplicated; B96.89 Other specified bacterial agents as the cause of diseases classified elsewhere; Z99.2 Dependence on renal dialysis; Z79.82 Long term (current) use of aspirin; Z79.4 Long term (current) use of insulin; Z74.01 Bed confinement status; Z89.612 Acquired absence of left leg above knee; Z20.828 Contact with and (suspected) exposure to other viral communicable diseases
CPT/HCPCS: G0378

== ENCOUNTER 2020-03-05 05:52 | Emergency (ER) | payer OTHER ==
[~2020-03-05] VITALS: Ht 154.9 cm; Wt 53.6 kg
[~2020-03-05 05:52] MED LIST changes: +KEFLEX500 MG PO
[2020-03-05] MEDS ORDERED: OMEPRAZOLE10 MG PO (06:23)
[2020-03-05] MEDS ORDERED: COLACE100 MG PO (06:23)
[2020-03-05] MEDS ORDERED: MIRTAZAPINE15 MG PO (06:27)
[2020-03-05 07:20] LABS: HEMATOCRIT 37.3 % (37.0-47.0); HEMOGLOBIN 11.4 g/dl (12.0-16.0); IMMATURE GRANULOCYTES 0.3 % (0.0-5.0); MEAN CORPUSCULAR HGB 25.9 pG CALC (26.0-32.0); MEAN CORPUSCULAR HGB CONC 30.6 g/dL CAL (32.0-36.0); NEUT# 13.09 thou/uL (2.00-7.15); RED BLOOD COUNT 4.41 mill/uL (4.20-5.60); RED CELL DISTRI WIDTH 15.9 % (11.5-15.5)
[2020-03-05 07:24] LABS: MEAN CELL VOLUME 84.6 fL CALC (80.0-100.0)
[2020-03-05 07:33] LABS: ALBUMIN 3.4 g/dL (3.2-5.0); POTASSIUM 4.6 mmol/l (3.5-5.1); TOTAL PROTEIN 7.8 g/dL (6.3-8.2)
[2020-03-05 07:36] LABS: BILIRUBIN, TOTAL 0.8 mg/dL (0.0-1.4)
[2020-03-05 07:38] LABS: CREATININE 6.3 mg/dL (0.5-1.0)
[2020-03-05 07:40] LABS: ACT PARTIAL THROMBO TIME 22.9 SECONDS (20.0-32.5)
[2020-03-05] MEDS ORDERED: TAM75CAP PO (08:50)
[2020-03-05] MEDS ORDERED: ONDANSETRON4 MG PO (08:58)
[2020-03-05 08:59] VITALS: BP 162/77
== END 2020-03-05 09:25 | disposition home or self-care (01) ==
LOC: ED 05:52
DX: J10.1 Influenza due to other identified influenza virus with other respiratory manifestations (principal); I12.0 Hypertensive chronic kidney disease with stage 5 chronic kidney disease or end stage renal disease; E11.22 Type 2 diabetes mellitus with diabetic chronic kidney disease; N18.6 End stage renal disease; E11.51 Type 2 diabetes mellitus with diabetic peripheral angiopathy without gangrene; F03.90 Unspecified dementia, unspecified severity, without behavioral disturbance, psychotic disturbance, mood disturbance, and anxiety; F41.9 Anxiety disorder, unspecified; F32.9 Major depressive disorder, single episode, unspecified; K21.9 Gastro-esophageal reflux disease without esophagitis; I48.91 Unspecified atrial fibrillation; Z99.2 Dependence on renal dialysis; Z89.612 Acquired absence of left leg above knee; Z20.828 Contact with and (suspected) exposure to other viral communicable diseases

== ENCOUNTER 2020-05-12 12:02 | Emergency (ER) | payer OTHER ==
[~2020-05-12] VITALS: Ht 154.9 cm; Wt 63.6 kg
[~2020-05-12 12:02] MED LIST changes: +MIRTAZAPINE15 MG PO; +TAM75CAP PO
[2020-05-12 12:53] LABS: HEMATOCRIT 32.9 % (37.0-47.0); HEMOGLOBIN 10.1 g/dl (12.0-16.0); MEAN CELL VOLUME 81.6 fL CALC (80.0-100.0); MEAN CORPUSCULAR HGB 25.1 pG CALC (26.0-32.0); MEAN CORPUSCULAR HGB CONC 30.7 g/dL CAL (32.0-36.0); NEUT# 18.61 thou/uL (2.00-7.15); RED BLOOD COUNT 4.03 mill/uL (4.20-5.60); RED CELL DISTRI WIDTH 17.1 % (11.5-15.5)
[2020-05-12 13:11] LABS: BILIRUBIN, TOTAL 0.8 mg/dL (0.0-1.4); TOTAL PROTEIN 6.8 g/dL (6.3-8.2)
[2020-05-12 13:18] LABS: ALBUMIN 2.5 g/dL (3.2-5.0); POTASSIUM 5.5 mmol/l (3.5-5.1)
[2020-05-12 13:40] LABS: URINE BILIRUBIN - DIPSTICK NEGATIVE (NEGATIVE); URINE BLOOD DIPSTICK LARGE (NEGATIVE); URINE COLOR YELLOW; URINE GLUCOSE - DIPSTICK NEGATIVE (NEGATIVE); URINE KETONE NEGATIVE (NEGATIVE); URINE NITRITE - DIPSTICK NEGATIVE (Negative); URINE PROTEIN - DIPSTICK 100 mg/dL (NEG-TRACE); URINE SPECIFIC GRAVITY <=1.005; URINE UROBILINOGEN - DIPSTICK 0.2 E.U./dL (0.2)
[2020-05-12 13:41] LABS: URINE BACTERIA MODERATE hpf; URINE EPITHELIAL CELLS MANY EPI/hpf (0-FEW); URINE LEUK ESTERASE MODERATE (NEGATIVE); URINE WBC >100 WBC/hpf (0-5)
[2020-05-12 15:13] LABS: ACT PARTIAL THROMBO TIME 29.2 SECONDS (20.0-32.5); INTERNATIONAL NORMALIZED RATIO 1.2 RATIO (0.7-1.3); PROTHROMBIN TIME 12.1 SECONDS (9.0-12.5)
[2020-05-12] MEDS ORDERED: ASPIRIN81 MG PO (15:33)
[2020-05-12] MEDS ORDERED: CATAPRES-T0.2 MG/21 TD (15:36)
[2020-05-12] MEDS ORDERED: NORVASC5 M1 PO (15:41)
[2020-05-12 17:16] VITALS: BP 104/70
--- NOTE | 2020-05-14 07:37 | NUR ---
URINE CX RESULTS CALLED TO SHIRA AT [facility], FAXED TO [phone].
== END 2020-05-12 17:16 ==
LOC: ED 12:02
PROVIDERS: Student in an Organized Health Care Education/Training Program
DX: A41.9 Sepsis, unspecified organism (principal); R65.20 Severe sepsis without septic shock; N39.0 Urinary tract infection, site not specified; E11.22 Type 2 diabetes mellitus with diabetic chronic kidney disease; I12.0 Hypertensive chronic kidney disease with stage 5 chronic kidney disease or end stage renal disease; N18.6 End stage renal disease; E11.51 Type 2 diabetes mellitus with diabetic peripheral angiopathy without gangrene; F03.90 Unspecified dementia, unspecified severity, without behavioral disturbance, psychotic disturbance, mood disturbance, and anxiety; F41.9 Anxiety disorder, unspecified; F32.9 Major depressive disorder, single episode, unspecified; I48.91 Unspecified atrial fibrillation; K21.9 Gastro-esophageal reflux disease without esophagitis; B96.4 Proteus (mirabilis) (morganii) as the cause of diseases classified elsewhere; Z99.2 Dependence on renal dialysis; Z89.612 Acquired absence of left leg above knee; Z20.828 Contact with and (suspected) exposure to other viral communicable diseases